=== PATIENT | male | born 1995 | race Caucasian/White ===

== ENCOUNTER 2020-05-25 20:12 | Emergency (ER) | payer SELFPAY ==
[~2020-05-25] VITALS: Ht 188 cm; Wt 76.9 kg
--- NOTE | 2020-05-25 20:15 | PHYS DOC ---
Past History Past Medical History: Anxiety (VIDAL ALMARAZ MD) Smoking: Cigarettes Alcohol Use: Occasionally Drug Use: Benzodiazepine, Marijuana (VIDAL ALMARAZ MD) General Adult HPI: HPI: ".. My made me come in.. I been using my grandmother's Xanax..she sells it to me .. . For my anxiety" Patient is a 24 year old male who presents with above hx and complaints bipolar disorder, anxiety, and dependence on benzodiazepines. Patient does smoke tobacco and marijuana. The pt. admit to some suicidal ideation. Patient has however has no plan. Patient denies any current legal issues. Patient denies any homicidal ideation. (VIDAL ALMARAZ MD) HPI: 24 YO PATIENT COMES TO THE ER WITH COMPLAINTS OF SUICIDAL IDEATION, STATES HE HAS BEEN PURCHASING 2MG XANAX FROM HIS GRANDMOTHER AND TAKING 8 TO 10 TABS PER MONTH, HE HAD TOLD HIS HE WILL STOP DOING THIS, SHE CAUGHT HIM AND TOLD HIM HE NEEDS HELP, HE BECAME SUICIDAL AND WAS ENCOURAGED BY HIS TO COME TO THE ER FOR A PSYCH EVALUATION, PT REPORTS A HX OF PTSD, MILD BiPOLER, ANXIETY, AND DEPRESSION. PT REPORTS SMOKING CIGARETTES AND MARIJUANA, DENIES DRINKING ETOH. DENIES OTHER COMPLAINTS OR ILLNESSES. (KRISTEN CHEN APRN) Review of Systems: Review of Systems: Constitutional: Denies fever or chills Eyes: Denies change in visual acuity HENT: Denies nasal congestion or sore throat Respiratory: Denies cough or shortness of breath Cardiovascular: Denies chest pain or edema GI: Denies abdominal pain, nausea, vomiting, bloody stools or diarrhea : Denies dysuria Musculoskeletal: Denies back pain or joint pain Integument: Denies rash Neurologic: Denies headache, focal weakness or sensory changes Endocrine: Denies polyuria or polydipsia Lymphatic: Denies swollen glands Psychiatric: Hx depression or anxiety (VIDAL ALMARAZ MD) Review of Systems: 14 body systems of review of systems have been reviewed. See HPI for pertinent positives and negative responses, otherwise all other systems are negative, nonpertinent or noncontributory. (KRISTEN CHEN APRN) Family History: Family History: Noncontributory to presentation (VIDAL ALMARAZ MD) Family History: GRANDMOTHER TAKE XANAX (KRISTEN CHEN APRN) Current Medications: Current Meds: See nursing for home meds (VIDAL ALMARAZ MD) Current Meds: NONE (KRISTEN CHEN APRN) Allergies: Allergies: No known drug allergies (VIDAL ALMARAZ MD) Allergies: NKDA (KRISTEN CHEN APRN) Physical Exam: PE: Constitutional: Well developed, well nourished, no acute distress, non-toxic appearance. [] HENT: Normocephalic, atraumatic, bilateral external ears normal, oropharynx moist, no oral exudates, nose normal. Has different color paint on his face. ( Symbolic of different humors- water, forest, air ect.) Eyes: PERRLA, EOMI, conjunctiva normal, no discharge. [] Neck: Normal range of motion, no tenderness, supple, no stridor. [] Cardiovascular:Heart rate regular rhythm, no murmur [] Lungs & Thorax: Bilateral breath sounds equal apex, with scattered wheezes on auscultation [] Abdomen: Bowel sounds normal, soft, no tenderness, no masses, no pulsatile masses. [] Skin: Warm, dry, no erythema, no rash. [] Back: No tenderness, no CVA tenderness. [] Extremities: No tenderness, no cyanosis, no clubbing, ROM intact, no edema. No cording in legs. Neurologic: Alert and oriented X 3, normal motor function, normal sensory function, no focal deficits noted. DTRs +2 patella and brachial. Ambulatory without problems. Psychologic: Affect anxious, judgement normal, mood normal. [] (VIDAL ALMARAZ MD) PE: Constitutional: Well developed, well nourished, no acute distress, non-toxic appearance. [] HENT: Normocephalic, atraumatic, bilateral external ears normal, oropharynx moist, no oral exudates, nose normal. [] Eyes: PERRLA, EOMI, conjunctiva normal, no discharge. [] Neck: Normal range of motion, no tenderness, supple, no stridor. [] Cardiovascular:Heart rate regular rhythm, no murmur [] Lungs & Thorax: Bilateral breath sounds clear to auscultation [] Abdomen: Bowel sounds normal, soft, no tenderness, no masses, no pulsatile masses. [] Skin: Warm, dry, no erythema, no rash. Back: No tenderness, no CVA tenderness. [] Extremities: No tenderness, no cyanosis, no clubbing, ROM intact, no edema. [] Neurologic: Alert and oriented X 3, normal motor function, normal sensory fu nction, no focal deficits noted. [] Psychologic: Affect NORMAL, NORMAL MOOD, POOR JUDGMENT. NON ANXIOUS. NOT HOMICIDAL, HAS SUICIDAL IDEATIONS. (KRISTEN CHEN APRN) Current Patient Data: Labs: Laboratory Tests Test 05/25/20 20:43 05/25/20 21:00 Urine Collection Type Unknown Urine Color Brynn Urine Clarity Clear Urine pH 5.5 Urine Specific [place] >=1.030 Urine Protein Neg Urine Glucose (UA) Neg mg/dL Urine Ketones (Stick) Neg mg/dL Urine Blood Neg Urine Nitrite Neg Urine Bilirubin Small Urine Urobilinogen Dipstick 0.2 mg/dL Urine Leukocyte Esterase Neg Urine RBC Occ /HPF Urine WBC Rare /HPF Urine Squamous Epithelial Cells None /LPF Urine Bacteria 0 /HPF Urine Opiates Screen Neg Urine Methadone Screen Neg Urine Barbiturates Neg Urine Phencyclidine Screen Neg Urine Amphetamine/Methamphetamine Neg Urine Benzodiazepines Screen Pos Urine Cocaine Screen Neg Urine Cannabinoids Screen Pos Urine Ethyl Alcohol Neg White Blood Count 10.2 x10^3/uL Red Blood Count 4.56 x10^6/uL Hemoglobin 13.5 g/dL Hematocrit 40.1 % Mean Corpuscular Volume 88 fL Mean Corpuscular Hemoglobin 30 pg Mean Corpuscular Hemoglobin Concent 34 g/dL Red Cell Distribution Width 12.7 % Platelet Count 304 x10^3/uL Neutrophils (%) (Auto) 60 % Lymphocytes (%) (Auto) 30 % Monocytes (%) (Auto) 9 % Eosinophils (%) (Auto) 1 % Basophils (%) (Auto) 1 % Neutrophils # (Auto) 6.1 x10^3uL Lymphocytes # (Auto) 3.0 x10^3/uL Monocytes # (Auto) 0.9 x10^3/uL Eosinophils # (Auto) 0.1 x10^3/uL Basophils # (Auto) 0.1 x10^3/uL Sodium Level 140 mmol/L Potassium Level 3.3 mmol/L Chloride Level 104 mmol/L Carbon Dioxide Level 31 mmol/L Anion Gap 5 Blood Urea Nitrogen 19 mg/dL Creatinine 1.5 mg/dL Estimated GFR (Cockcroft-Gault) 57.0 BUN/Creatinine Ratio 13 Glucose Level 80 mg/dL Calcium Level 8.9 mg/dL Total Bilirubin 1.0 mg/dL Aspartate Amino Transf (AST/SGOT) 16 U/L Alanine Aminotransferase (ALT/SGPT) 11 U/L Alkaline Phosphatase 46 U/L Total Protein 7.9 g/dL Albumin 4.4 g/dL Albumin/Globulin Ratio 1.3 Ethyl Alcohol Level < 10 mg/dL Current Medications Medications (Trade) Dose Ordered Sig/Donnie Route PRN Reason Start Time Stop Time Status Last Admin Dose Admin Lactated Ringer's 1,000 ml @ 0 mls/hr 1X ONCE IV 05/25/20 21:30 05/25/20 21:31 DC 05/25/20 21:26 Vital Signs: Laboratory Tests Test 05/25/20 20:43 05/25/20 21:00 Urine Collection Type Unknown Urine Color Brynn Urine Clarity Clear Urine pH 5.5 Urine Specific [place] >=1.030 Urine Protein Neg Urine Glucose (UA) Neg mg/dL Urine Ketones (Stick) Neg mg/dL Urine Blood Neg Urine Nitrite Neg Urine Bilirubin Small Urine Urobilinogen Dipstick 0.2 mg/dL Urine Leukocyte Esterase Neg Urine RBC Occ /HPF Urine WBC Rare /HPF Urine Squamous Epithelial Cells None /LPF Urine Bacteria 0 /HPF Urine Opiates Screen Neg Urine Methadone Screen Neg Urine Barbiturates Neg Urine Phencyclidine Screen Neg Urine Amphetamine/Methamphetamine Neg Urine Benzodiazepines Screen Pos Urine Cocaine Screen Neg Urine Cannabinoids Screen Pos Urine Ethyl Alcohol Neg White Blood Count 10.2 x10^3/uL Red Blood Count 4.56 x10^6/uL Hemoglobin 13.5 g/dL Hematocrit 40.1 % Mean Corpuscular Volume 88 fL Mean Corpuscular Hemoglobin 30 pg Mean Corpuscular Hemoglobin Concent 34 g/dL Red Cell Distribution Width 12.7 % Platelet Count 304 x10^3/uL Neutrophils (%) (Auto) 60 % Lymphocytes (%) (Auto) 30 % Monocytes (%) (Auto) 9 % Eosinophils (%) (Auto) 1 % Basophils (%) (Auto) 1 % Neutrophils # (Auto) 6.1 x10^3uL Lymphocytes # (Auto) 3.0 x10^3/uL Monocytes # (Auto) 0.9 x10^3/uL Eosinophils # (Auto) 0.1 x10^3/uL Basophils # (Auto) 0.1 x10^3/uL Sodium Level 140 mmol/L Potassium Level 3.3 mmol/L Chloride Level 104 mmol/L Carbon Dioxide Level 31 mmol/L Anion Gap 5 Blood Urea Nitrogen 19 mg/dL Creatinine 1.5 mg/dL Estimated GFR (Cockcroft-Gault) 57.0 BUN/Creatinine Ratio 13 Glucose Level 80 mg/dL Calcium Level 8.9 mg/dL Total Bilirubin 1.0 mg/dL Aspartate Amino Transf (AST/SGOT) 16 U/L Alanine Aminotransferase (ALT/SGPT) 11 U/L Alkaline Phosphatase 46 U/L Total Protein 7.9 g/dL Albumin 4.4 g/dL Albumin/Globulin Ratio 1.3 Ethyl Alcohol Level < 10 mg/dL Current Medications Medications (Trade) Dose Ordered Sig/Donnie Route PRN Reason Start Time Stop Time Status Last Admin Dose Admin Lactated Ringer's 1,000 ml @ 0 mls/hr 1X ONCE IV 05/25/20 21:30 05/25/20 21:31 DC 05/25/20 21:26 (KRISTEN CHEN APRN) EKG: EKG: My interpretation EKG shows a sinus rhythm at 72 bpm. No acute morphology. [] (VIDAL ALMARAZ MD) EKG: EKG PERFORMED AT 22:46 BY HOUSE RT, SHOWS NSR WITHOUT ECTOPY, RATE 72 BPM, OH INTERVAL .108, QTc INTERVAL .404, NO STEMI, NO ISCHEMIA, NO ACS, INTERPRETED BY ED ATTENDING DR. ALMARAZ. (KRISTEN CHEN APRN) Radiology/Procedures: Radiology/Procedures: [] (VIDAL ALMARAZ MD) Heart Score: HEART Score for Chest Pain: HEART Score for Chest Pain Response (Comments) Value History Slighlty/Non-Suspicious 0 ECG Normal 0 Age < 45 0 Risk Factors 1 or 2 Risk Factors 1 Total 1 Risk Factors: Risk Factors: DM, Current or recent (<one month) smoker, HTN, HLP, family history of CAD, obesity. Risk Scores: Score 0 - 3: 2.5% MACE over next 6 weeks - Discharge Home Score 4 - 6: 20.3% MACE over next 6 weeks - Admit for Clinical Observation Score 7 - 10: 72.7% MACE over next 6 weeks - Early Invasive Strategies (VIDAL ALMARAZ MD) Course & Med Decision Making: Course & Med Decision Making Pertinent Labs and Imaging studies reviewed. (See chart for details) See Neetu Chen report for details. See. Fuentes. Keshawn report. Patient encouraged to void illicit drug use. Patient follow-up with counseling center. Patient return if any concerns. Impression: 1. Polysubstance abuse 2. History of bipolar disorder 3. History of depression 4. History of anxiety disorder [] (VIDAL ALMARAZ MD) Course & Med Decision Making 24YO PT HERE FOR PSYCH EVAL, VITAL SIGNS REVIEWED,LABS DRAWN, RESULTS EQUIVOCAL, UDS POSITIVE FOR BENZO AND THC WHICH HE ADMITS TO RECENT USAGE. PT REPORTS SUICIDAL IDEATION BUT HAS NO PLAN. IS CURRENTLY AWAITING PSYCH TERADATA SOLUTION ARCHITECT EVALUATION. DISCUSSED CASE WITH ED ATTENDING DR. ALMARAZ WHOM HAS ASSUMED PATIENT CARE. (KRISTEN CHEN APRN) Dragon Disclaimer: Dragon Disclaimer: This electronic medical record was generated, in whole or in part, using a voice recognition dictation system. (VIDAL ALMARAZ MD) Departure Departure: Referrals: PCP,NO (PCP) Dragon Disclaimer This chart was dictated in whole or in part using Voice Recognition software in a busy, high-work load, and often noisy Emergency Department environment. It may contain unintended and wholly unrecognized errors or omissions. (VIDAL ALMARAZ MD) VIDAL ALMARAZ MD May 25, 2020 20:15 KRISTEN CHEN APRN May 25, 2020 22:41
[2020-05-25 20:30] VITALS: BP 122/66
[2020-05-25 21:25] LABS: BASO # 0.1 x10^3/uL (0.0-0.2); BASO % 1 % (0-3); EOS # 0.1 x10^3/uL (0.0-0.7); EOS % 1 % (0-3); HEMATOCRIT 40.1 % (39.0-53.0); HEMOGLOBIN 13.5 g/dL (13.0-17.5); LYMPH % 30 % (24-48); MEAN CORPUSCULAR HEMOGLOBIN 30 pg (25-35); MEAN CORPUSCULAR HGB CONC 34 g/dL (31-37); MEAN CORPUSCULAR VOLUME 88 fL (79-100); MONO # 0.9 x10^3/uL (0.0-1.1); MONO % 9 % (0-9); NEUT # 6.1 x10^3uL (1.8-7.7); NEUT % 60 % (31-73); PLATELET COUNT 304 x10^3/uL (140-400); RED BLOOD COUNT 4.56 x10^6/uL (4.30-5.70); RED CELL DISTRIBUTION WIDTH 12.7 % (11.5-14.5); WHITE BLOOD COUNT 10.2 x10^3/uL (4.0-11.0)
[2020-05-25] MEDS ORDERED: IV RINGERS SOLUTION,LACTATED 1,000 ML IV ONE (21:30)
[2020-05-25 21:33] LABS: CALCIUM 8.9 mg/dL (8.5-10.1); CREATININE 1.5 mg/dL (0.7-1.3); POTASSIUM 3.3 mmol/L (3.5-5.1)
[2020-05-25 21:34] LABS: BARBITURATES NEG (NEG); BENZODIAZEPINES POS (NEG); CANNABINOIDS POS (NEG); COCAINE NEG (NEG); METHADONE NEG (NEG); OPIATES NEG (NEG); PHENCYCLIDINE NEG (NEG)
[2020-05-25 21:36] LABS: AMPHETAMINE/METHAMPHETAMINE NEG (NEG)
[2020-05-25 21:39] LABS: ALBUMIN 4.4 g/dL (3.4-5.0); ALBUMIN/GLOBULIN RATIO 1.3 (1.0-1.7); TOTAL PROTEIN 7.9 g/dL (6.4-8.2)
[2020-05-25 21:44] LABS: BACTERIA,URINE 0 /HPF (0-FEW); BILIRUBIN,URINE SMALL (NEG); CLARITY,URINE CLEAR; COLOR,URINE AMBER; GLUCOSE,URINE NEG (NEG); NITRITE,URINE NEG (NEG); RBC,URINE OCC /HPF (0-2); UROBILINOGEN,URINE 0.2 mg/dL (0.2 mg/dL); WBC,URINE RARE /HPF (0-4)
[2020-05-26] MEDS ORDERED: LORazepam 1 MG TABLET ONE (01:27)
[2020-05-26] MEDS ORDERED: LORazepam 1 MG TABLET PO ONE (01:30)
--- NOTE | 2020-05-27 08:42 | EKG ---
[address] [address] Test Date: 2020-05-25 Test Time: 22:46:29 Pat Name: ALPHONSE CACERES Department: Room: Gender: M Solution Strategist: CARLEE : 1995 Requested By: KRISTEN GUTIERREZ Order Number: [id number] Reading MD: Measurements Intervals [place] Rate: 72 P: 69 MN: 160 QRS: 88 QRSD: 96 T: 55 QT: 368 QTc: 404 Interpretive Statements SINUS RHYTHM OTHERWISE NORMAL ECG RI6.02 No previous ECG available for comparison
== END 2020-05-26 01:40 | disposition home or self-care (01) ==
LOC: ER 20:12
DX: F19.10 Other psychoactive substance abuse, uncomplicated (principal); R45.851 Suicidal ideations; F31.9 Bipolar disorder, unspecified; F41.9 Anxiety disorder, unspecified; F17.210 Nicotine dependence, cigarettes, uncomplicated; F12.10 Cannabis abuse, uncomplicated
CPT/HCPCS: 36415; 80053; 80307; 81001; 85025; 93005; 96360; 99285; G0480; J7120